=== PATIENT | female | born 1960 | race Caucasian/White ===

== ENCOUNTER → 2017-07-16 | Outpatient (CLI) | payer OTHER ==
--- NOTE | 2017-07-16 10:16 | REPMRS ---
Patient History The patient states she had a clinical breast exam in Patient is postmenopausal. No known family history of cancer. Taking unspecified hormones for 1 year. Digital Woman Screen Mammo: July 16, 2017 - Exam #: [id number] Bilateral CC and MLO view(s) were taken. Technologist: Rosenda Royal, Technologist Prior study comparison: June 03, 2016, digital woman screen mammo performed at [facility]. March 01, 2015, digital woman screen mammo performed at [facility]. December 29, 2013, digital woman screen mammo performed at [facility]. FINDINGS: There are scattered fibroglandular densities. There has been no change in the appearance of the mammogram from the prior studies. There is a mild amount of scattered fibroglandular density which is fairly symmetric. There is no interval development of dominant mass, architectural distortion, or clustered microcalcification suggestive of malignancy. ASSESSMENT: BI-RADS/ACR category 1 mammogram. Negative. Recommendation Routine screening mammogram in 1 year (for women over age 40). This mammogram was interpreted with the aid of an FDA-approved computer-aided dectection system. Electronically Signed By: Lui Chester MD 07/16/17 [id number]
== END ==
LOC: M WHC 08:57
PROVIDERS: ATTEND Nurse Practitioner Women's Health
DX: Z12.31 Encounter for screening mammogram for malignant neoplasm of breast (principal)

== ENCOUNTER → 2017-07-16 | Outpatient (REF) | payer OTHER | LOC: M SFHCWAGY 09:29 | PROVIDERS: ATTEND Nurse Practitioner Women's Health | DX: Z12.4 Encounter for screening for malignant neoplasm of cervix (principal) ==

== ENCOUNTER → 2018-10-12 | Outpatient (CLI) | payer OTHER ==
--- NOTE | 2018-10-12 10:19 | REPMRS ---
Patient History The patient states she had a clinical breast exam in 09/2018. Patient is postmenopausal. No known family history of cancer. Taking estrogen for 2 years. Digital Woman Screen Mammo: October 12, 2018 - Exam #: [id number] Bilateral CC and MLO view(s) were taken. Technologist: Jamaica Fox, Technologist Prior study comparison: July 16, 2017, digital woman screen mammo performed at [facility]. June 03, 2016, digital woman screen mammo performed at [facility]. March 01, 2015, digital woman screen mammo performed at [facility]. FINDINGS: There are scattered fibroglandular densities. There has been no change in the appearance of the mammogram from the prior studies. There is a mild amount of scattered fibroglandular density which is fairly symmetric. There is no interval development of dominant mass, architectural distortion, or clustered microcalcification suggestive of malignancy. 3-D tomosynthesis shows no additional findings. Assessment: BI-RADS/ACR category 1 mammogram. Negative Mammogram. Recommendation Routine screening mammogram of both breasts in 1 year (for women over age 40). This patient's Lifetime Breast Cancer RIsk is estimated at 7.0 %. This mammogram was interpreted with the aid of an FDA-approved computer-aided dectection system. Electronically Signed By: Lui Chester MD 10/12/18 [id number]
== END ==
LOC: M WHC 08:44
PROVIDERS: ATTEND Nurse Practitioner Women's Health
DX: Z12.31 Encounter for screening mammogram for malignant neoplasm of breast (principal)